=== PATIENT | male | born 1970 | race Caucasian/White ===

== ENCOUNTER 2025-01-14 11:14 | Emergency (ER) | payer OTHER ==
[~2025-01-14] VITALS: Ht 172.7 cm; Wt 74.8 kg
[2025-01-14] MEDS ORDERED: Ketorolac Tromethamine 15mg Vial IV ONE (12:00)
== END 2025-01-14 15:57 | disposition home or self-care (01) ==
LOC: ER 11:14
DX: S51.822A Laceration with foreign body of left forearm, initial encounter (principal); V89.2XXA Person injured in unspecified motor-vehicle accident, traffic, initial encounter
CPT/HCPCS: 12002; 73030; 73060; 73090; 90471; 90715; 96374; 99283-25; J1885